=== PATIENT | female | born 1950 | race Caucasian/White ===

== ENCOUNTER 2022-04-17 11:05 | Observation (INO) ==
[2022-04-17] MEDS ORDERED: Ondansetron 4 MG/2 ML VIAL IVP PRN (11:35)
[2022-04-17] MEDS ORDERED: Acetaminophen 325 MG TABLET PO PRN (11:35)
[2022-04-17] MEDS ORDERED: Naloxone 0.4 MG/ML INJ IVP PRN (11:35)
[2022-04-17] MEDS ORDERED: Nitroglycerin 0.4 MG TAB.SUBL SL PRN (11:37)
[2022-04-17] MEDS ORDERED: Sennosides/Docusate Sodium TABLET PO PRN (11:37)
[2022-04-17] MEDS ORDERED: cloNIDine HCL 0.1 MG TABLET PO PRN (11:40)
[2022-04-17] MEDS: Budesonide/Formoterol 160/4.5 1 PUFF INH IH SCH ×2 (12:03→19:46)
[2022-04-17] MEDS: Ipratropium/Albuterol Neb 3 ML IH SCH ×4 (12:04→23:50)
[2022-04-17] MEDS: MethylPREDNISolone 40 MG/ML VIAL IVP SCH ×3 (12:26→23:30)
[2022-04-17] MEDS ORDERED: Perflutren Lipid Microsphere 1.3 ML in 0.9 % Sodium Chloride 8.7 ML IVP PRN (12:30)
[2022-04-17 15:13] LABS: Adenovirus Not Detected (Not Detect); Bordetella Pertussis Not Detected (Not Detect); Chlamydophila pneumoniae Not Detected (Not Detect); Coronavirus 229E Not Detected (Not Detect); Coronavirus HKU1 Not Detected (Not Detect); Coronavirus NL63 Not Detected (Not Detect); Coronavirus OC43 Not Detected (Not Detect); Human Metapneumovirus Not Detected (Not Detect); Human Rhinovirus/Enterovirus Not Detected (Not Detect); Influenza A Subtype 2009 H1 Not Detected (Not Detect); Influenza B Not Detected (Not Detect); Mycoplasma pneumoniae Not Detected (Not Detect); Parainfluenza Virus 1 Not Detected (Not Detect); Parainfluenza Virus 2 Not Detected (Not Detect); Parainfluenza Virus 3 Not Detected (Not Detect); Parainfluenza Virus 4 Not Detected (Not Detect); Respiratory Syncytial Virus Not Detected (Not Detect); SARS-CoV-2 Not Detected (Not Detect)
[2022-04-17] MEDS: hydrALAZINE 10 MG TABLET PO SCH ×2 (16:39→19:58)
[2022-04-17] MEDS: carvediloL 6.25 MG TABLET PO SCH (16:39)
[2022-04-17] MEDS: Gabapentin 300 MG CAPSULE PO SCH (16:39)
[2022-04-17] MEDS: Benzonatate 100 MG CAPSULE PO PRN (19:57)
[2022-04-18] MEDS: Ipratropium/Albuterol Neb 3 ML IH SCH ×3 (04:30→10:50)
[2022-04-18] MEDS: MethylPREDNISolone 40 MG/ML VIAL IVP SCH ×3 (04:33→20:58)
[2022-04-18 05:23] LABS: Hematocrit 29.7 % (35.3-44.9); Hemoglobin 9.9 g/dL (11.5-15.4); Mean Corpuscular HGB Conc 33.3 g/dL (31.6-35.5); Mean Corpuscular Hemoglobin 30.3 pg (28.0-33.3); Mean Corpuscular Volume 90.8 fL (83.0-100.0); Mean Platelet Volume 10.7 fL (9.4-12.4); Platelet Count 320 K/mcL (140-400); Red Blood Count 3.27 M/mcL (3.82-4.97); Red Cell Distribution Width 14.3 % (11.5-14.5); White Blood Count 14.7 K/mcL (4.3-11.1)
[2022-04-18 05:34] LABS: Calcium 8.4 mg/dL (8.6-10.3); Potassium 4.1 mEq/L (3.5-5.1)
[2022-04-18] MEDS ORDERED: *HR* Enoxaparin 40 MG/0.4 ML SYRINGE SQ SCH (06:00)
[2022-04-18] MEDS: Budesonide/Formoterol 160/4.5 1 PUFF INH IH SCH ×2 (07:35→21:13)
[2022-04-18] MEDS: Benzonatate 100 MG CAPSULE PO PRN ×2 (08:26→20:59)
[2022-04-18] MEDS: Loratadine 10 MG TABLET PO SCH (08:26)
[2022-04-18] MEDS: hydrALAZINE 10 MG TABLET PO SCH ×2 (08:26→13:55)
[2022-04-18] MEDS: Aspirin Enteric Coated 81 MG Tablet PO SCH (08:26)
[2022-04-18] MEDS: carvediloL 6.25 MG TABLET PO SCH ×2 (08:26→17:20)
[2022-04-18] MEDS: allopurinoL 100 MG TABLET PO SCH (08:27)
[2022-04-18] MEDS ORDERED: NIFEdipine XL (24 HR) 30 MG TAB.ER.24 PO SCH (09:00)
[2022-04-18] MEDS ORDERED: levoFLOXacin 750 MG/150 ML 750 MG/150 ML BAG IVPB SCH (09:00)
[2022-04-18] MEDS: Torsemide 20 MG TABLET PO SCH (12:43)
[2022-04-18] MEDS ORDERED: 0.9 % Sodium Chloride 500 ML IVC ONE (13:45)
[2022-04-18] MEDS: Levalbuterol Neb 1.25 MG/3 ML IH SCH ×2 (15:24→21:13)
[2022-04-18] MEDS: 0.9 % Sodium Chloride 1,000 ML IVC SCH (17:37)
[2022-04-18] MEDS: Gabapentin 300 MG CAPSULE PO SCH (17:37)
[2022-04-18 22:44] LABS: Bilirubin,Urine Negative (Negative); Blood,Urine Trace-lysed (Negative); Clarity,Urine Slightly Cloudy (Clear); Color,Urine Yellow (Yellow); Glucose,Urine (UA) Normal (Normal); Ketones,Urine Negative (Negative); Leukocyte Esterase,Urine Negative (Negative); Nitrite,Urine Negative (Negative); PH,Urine 5.5 pH Units (5.0-8.0); Protein,Urine >=300 mg/dL (Neg-Trace); Specific Gravity,Urine >= 1.030 (1.010-1.025); Urobilinogen,Urine Normal (Normal)
[2022-04-18 22:47] LABS: Bacteria,Urine Few per hpf (None-Few); Granular Casts,Urine Few per lpf (None Seen)
[2022-04-18 22:49] LABS: Calcium Oxalate Crystals,Urine Present per hpf; WBC,Urine 0-3 per hpf (0-3)
[2022-04-18 22:50] LABS: RBC,Urine 0-3 per hpf (0-3); Squamous Epithelial Cell,Urine Few per hpf (None-Few)
[2022-04-18 22:53] LABS: Hyaline Casts,Urine Few per lpf (None Seen)
[2022-04-19] MEDS: MethylPREDNISolone 40 MG/ML VIAL IVP SCH (04:10)
[2022-04-19] MEDS: Levalbuterol Neb 1.25 MG/3 ML IH SCH ×2 (04:17→10:06)
[2022-04-19 05:46] LABS: Hematocrit 30.4 % (35.3-44.9); Hemoglobin 10.1 g/dL (11.5-15.4); Mean Corpuscular HGB Conc 33.2 g/dL (31.6-35.5); Mean Corpuscular Hemoglobin 30.1 pg (28.0-33.3); Mean Corpuscular Volume 90.5 fL (83.0-100.0); Mean Platelet Volume 9.5 fL (9.4-12.4); Platelet Count 420 K/mcL (140-400); Red Blood Count 3.36 M/mcL (3.82-4.97); Red Cell Distribution Width 14.4 % (11.5-14.5); White Blood Count 23.1 K/mcL (4.3-11.1)
[2022-04-19] MEDS ORDERED: *HR* Enoxaparin 30 MG/0.3 ML SYRINGE SQ SCH (06:00)
[2022-04-19 06:05] LABS: Albumin 3.3 g/dL (3.5-5.7); Bilirubin,Total 0.2 mg/dL (0.3-1.0); Calcium 8.3 mg/dL (8.6-10.3); Globulin 3.4 g/dL (2.4-3.5); Magnesium 2.1 mg/dL (1.6-2.6); Total Protein 6.7 g/dL (6.4-8.9)
[2022-04-19] MEDS: 0.9 % Sodium Chloride 1,000 ML IVC SCH (07:59)
[2022-04-19] MEDS: Aspirin Enteric Coated 81 MG Tablet PO SCH (09:01)
[2022-04-19] MEDS: carvediloL 6.25 MG TABLET PO SCH (09:01)
[2022-04-19] MEDS: allopurinoL 100 MG TABLET PO SCH (09:01)
[2022-04-19] MEDS: Torsemide 20 MG TABLET PO SCH (09:01)
[2022-04-19] MEDS: Loratadine 10 MG TABLET PO SCH (09:01)
[2022-04-19] MEDS: Budesonide/Formoterol 160/4.5 1 PUFF INH IH SCH (10:06)
[2022-04-19 11:07] VITALS: BP 166/81; PULSE 81; RESP 15; TEMP 98.2; O2SAT 97
[2022-04-19] MEDS ORDERED: NIFEdipine XL (24 HR) 30 MG TAB.ER.24 PO SCH (21:00)
== END 2022-04-19 12:43 | disposition home or self-care (01) ==
LOC: INPGRE
PROVIDERS: ADMIT Family Medicine; ATTEND Family Medicine